=== PATIENT | male | born 1965 | race Caucasian/White ===

== ENCOUNTER → 2024-01-09 12:03 | Outpatient (REF) | payer OTHER, SELFPAY | LOC: RAD 12:03 | PROVIDERS: ATTENDING PHYSICIAN Internal Medicine Critical Care Medicine; FAMILY PHYSICIAN Family Medicine | DX: R91.8 Other nonspecific abnormal finding of lung field (principal) | CPT/HCPCS: 71250 ==

== ENCOUNTER 2025-04-16 06:15 | Day surgery (SDC) | payer OTHER, SELFPAY | END 2025-04-16 12:59 | disposition home or self-care (01) | LOC: GI 06:15 | PROVIDERS: ATTENDING PHYSICIAN Specialist | DX: Z12.11 Encounter for screening for malignant neoplasm of colon (principal); K57.30 Diverticulosis of large intestine without perforation or abscess without bleeding; K63.5 Polyp of colon; D12.3 Benign neoplasm of transverse colon; Z86.0101 Personal history of adenomatous and serrated colon polyps | CPT/HCPCS: 45385; 88305 ==

== ENCOUNTER 2025-07-17 11:17 | Emergency (ER) | payer OTHER, SELFPAY ==
[2025-07-17 11:25] VITALS: BP 152/89
[2025-07-17 11:53] VITALS: BMI 31.4
[2025-07-17 11:56] VITALS: BP 153/88
--- NOTE | 2025-07-17 12:06 | ED.GENMED ---
History of Present Illness
General
Chief Complaint: Musculo-Skeletal Complaint
Source: patient
Time Seen by Provider: 07/17/25 11:55
History of Present Illness
History of Present Illness:
59-year-old male with past medical history of hypertension, hyperlipidemia and GERD presenting to the ER for evaluation of nontraumatic right shoulder pain that gradually worsening over the last few days, worse with movements, today much worse,
constant and sharp. Has not attempted any medications for relief. Schedule an appointment with his primary care provider 215 this afternoon but states he does not feel he can make this Appointment. He states that he has had orthopedic issues in
the past with the shoulder which he thought was due to overuse injury but states never this severe. He has never seen orthopedics for this problem, fevers or infectious symptoms or any other concerns.
Past History
Past History
ED Past Medical History: GERD, HTN, Hypercholesterolemia and Psychiatric
ED Past Surgical History: None
Social History
Tobacco: Non-smoker
Alcohol: Occasional
Drug: None
Personal:
Living: with family
Review of Systems
Review of Systems
All Other Systems: ROS reviewed and negative except as documented in HPI and ROS
Phy Exam
Physical Exam
Physical Exam:
GENERAL: Alert , in no apparent distress but does appear uncomfortable
EYE: conjunctiva clear
Head: Normocephalic atraumatic
NECK: Supple,
ENT: mmm.
LUNGS: no acute respiratory distress
NEUROLOGICAL: Alert and oriented
SKIN: Warm and dry, skin intact.
MUSCULOSKELETAL: Right upper extremity: No obvious deformity, erythema, edema, ecchymosis, abrasions or lacerations. He does allow for range of motion at the digits, wrist and elbow but states this does cause him discomfort within the shoulder.
Limited to no range of motion of the shoulder secondary to pain. Extremity is otherwise warm well-perfused and neurovascularly intact.
PSYCH: Normal and appropriate interaction.
Scores
Heart Failure Risk
Heart Failure Risk Score: Not Applicable
Heart Score for Chest Pain Patients
STEMI patient?: Not applicable
Withdrawal Assessment of Alcohol
Withdrawal Assessment Completed?: Not applicable
Course
Orders/Labs/Results
Orders:
Orders
07/17/25 11:28
Electrocardiogram (*1) Urgent
Reason for Study: Other
Other Reason for Exam: shoulder/back pain
CR Shoulder - Right Min 2 View Urgent
Comment:
Reason For Exam: pain
07/17/25 11:29
EKG- Treatment ONCE
07/17/25 12:06
Ibuprofen [Motrin] 800 mg PO NOW STA
Oxycodone/Acetaminophen [Percocet 5/325] 1 tablet PO NOW STA
Vital Signs
Initial and Last Documented VS:
Initial Vital Signs
Temp Pulse Resp BP Pulse Ox
97.4 F 75 16 152/89 99
07/17/25 11:25 07/17/25 11:25 07/17/25 11:25 07/17/25 11:25 07/17/25 11:25
Last Documented Vital Signs
Temp Pulse Resp BP Pulse Ox
98.3 F 74 20 153/82 98
07/17/25 12:35 07/17/25 12:35 07/17/25 12:35 07/17/25 12:35 07/17/25 12:35
MDM/Problems Addressed
Differential Diagnosis Includes:
Bursitis
Tendinitis
Given no trauma my concern for fracture/dislocation/subluxation is very low
No symptoms to suggest septic joint
MDM/Problems Addressed:
59-year-old male presenting to the emergency department for evaluation of nontraumatic right shoulder pain that has been gradually worsening, has not attempted medications for any relief. Today pain was worse prompting him to come to the ER. He
also has a follow-up scheduled with his primary care provider for later this afternoon. 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 At this time we will
recommend a short-term course of anti-inflammatories over the next 5 to 7 days. Will also treat with oxycodone for pain control to be used as needed. Strongly encouraged outpatient orthopedics follow-up as patient may need localized injection into
the shoulder for additional relief and help with range of motion. I did offer a sling for the patient to which she declined.
*Radiology
Radiology exam reviewed: preliminary read by ED provider (Findings suggestive of calcific tendinosis)
*Pulse Oximetry
SaO2: 98
Oxygen Mode of Delivery: Room air
Patient hypoxic: no
*Critical Care Note
Total Time (30-74mins, 75-104mins- exclusive of procedures): Not Applicable
ED Attending Note
-
Portions of this chart may have been created with voice recognition software.� Occasional wrong word or��sound alike� substitutions may have occurred due to the inherent limitations of voice recognition software.
Discharge Plan
Departure
Patient Disposition: Home (Routine Discharge)
Date of Disposition: 07/17/25
Time of Disposition: 12:07
Patient with high blood pressure during this ER visit?: Yes
Discharge Problem:
Acute pain of right shoulder
Instructions: Shoulder pain - ED (DC)
Prescriptions:
New
oxycodone-acetaminophen [Percocet] 5-325 mg tablet
1 tab PO Q6HPRN PRN (Reason: pain) Qty: 8 0RF
Referrals:
Kevin Robles MD [Active, Orthopedics]
Simone Munoz MD [Family Provider, Family Practice]
Interventions
Interventions:
*Risk Screen - Suicide Last Done: 07/17/25 11:25
*General Assessment Last Done: 07/17/25 11:25
*Neglect/Abuse Screening Last Done: 07/17/25 11:25
*ED- Fall Risk Assessment Last Done: 07/17/25 11:55
*ED COVID-19 Vaccine History Last Done: 07/17/25 11:25
*Nursing Disposition Last Done: 07/17/25 12:35
ED-Musculoskeletal Assessment Last Done: 07/17/25 11:53
Discharge Date and Time
Discharge Date/Time: 07/17/25 12:30
Print Language: SLOVAK
[2025-07-17] MEDS: MOTRIN 800 MG PO (12:14)
[2025-07-17] MEDS: PERCOCET 5/325 1 TABLET PO (12:14)
--- NOTE | 2025-07-17 12:34 | EDRN ---
Reviewed discharge instructions with patient. Verbalized understanding. Ambulated with steady gait to the lobby.
[2025-07-17 12:35] VITALS: BP 153/82
== END 2025-07-17 12:30 | disposition home or self-care (01) ==
LOC: EMR 11:17
PROVIDERS: EMERGENCY PHYSICIAN Emergency Medicine; FAMILY PHYSICIAN Family Medicine
DX: M25.511 Pain in right shoulder (principal); I10 Essential (primary) hypertension; E78.00 Pure hypercholesterolemia, unspecified
CPT/HCPCS: 99284; 73030; 93005

== ENCOUNTER → 2025-08-11 10:39 | Outpatient (REF) | payer OTHER, SELFPAY | LOC: PAVMRI 10:39 | PROVIDERS: ATTENDING PHYSICIAN Orthopaedic Surgery Hand Surgery; FAMILY PHYSICIAN Family Medicine | DX: M75.121 Complete rotator cuff tear or rupture of right shoulder, not specified as traumatic (principal); M75.41 Impingement syndrome of right shoulder | CPT/HCPCS: 73221 ==